=== PATIENT | female | born 1975 ===

== ENCOUNTER 2020-08-25 17:21 | Emergency (ER) | payer SELFPAY ==
[2020-08-25 17:38] VITALS: BP 152/89; PULSE 70; RESP 15; TEMP 36.6; O2SAT 98; BMI 26.6
--- NOTE | 2020-08-25 17:49 | ED_ITS ---
HPI - Back Pain/Injury General: Chief Complaint: Back Pain/Injury Stated Complaint: Low back pain after bending over Time Seen by Provider: 08/25/20 17:48 History of Present Illness: HPI Narrative: Patient is a 45-year-old female who comes to the ED with left lower back pain. Patient says couple hours ago, she was cleaning her kitchen and bent over and came back up pain on the left lower back region. She now has pain there occurred with movement. Denies any pain or numbness down lower extremities. Denies any bladder or bowel incontinence, pelvic anesthesia. Associated symptoms: Deny abdominal pain, chills, dysuria, fatigue, fever(s), hematuria, nausea or vomiting Review of Systems Const: Denies: fever(s), chills or fatigue Eyes: Denies: change in vision or eye discomfort ENMT: Denies: throat pain, odynophagia, nasal discharge or nasal congestion Card: Denies: chest pain, palpitations, edema, swelling of feet/ankles, dys pnea on exertion or orthopnea Resp: Denies: dyspnea, productive cough or non-productive cough GI: Denies: abdominal pain, nausea, vomiting, diarrhea, constipation or hematochezia : Denies: flank pain, dysuria or hematuria Musc: Reports: back pain; Denies: neck pain or extremity swelling Skin/Breast: Denies: rash or new lesions Neuro: Denies: headache(s), numbness in extremities or weakness in extremities Physical Exam Const: COMMON NORMALS: no acute distress, patient oriented x3, healthy appearing and alert GENERAL APPEARANCE: cooperative and comfortable HENMT: COMMON NORMALS: normocephalic HEAD & SCALP: normocephalic MOUTH: Normal oral and palatal mucosa present THROAT: posterior oropharynx normal and uvula midline Neck/C-Spine: COMMON NORMALS: supple GENERAL: Yes normal visual inspection Resp: COMMON NORMALS: normal respiratory effort, No retractions, No use of accessory muscles and clear to auscultation bilaterally AUSCULTATION: clear to auscultation bilaterally Cardio: COMMON NORMALS: regular rate, regular rhythm, S1 normal heart sound present, S2 normal heart sound present, No gallops present (Cardio), No clicks present (Cardio), No murmurs present (Cardio) and Peripheral pulses 2+ throughout RATE: regular rate RHYTHM: regular rhythm HEART SOUNDS: S1 normal heart sound present and S2 normal heart sound present PERIPHERAL PULSES: Peripheral pulses 2+ throughout GI: COMMON NORMALS: Normal to inspection, nondistended, normoactive bowel sounds present, Soft to palpation, non-tender and no masses PALPATION: Yes Soft to palpation : COMMON NORMALS: Yes no CVA tenderness BLADDER/KIDNEY EXAM: Yes no CVA tenderness Back/Pelvis: COMMON NORMALS: no CVA tenderness LUMBAR SPINE/LOWER BACK: Yes pain with ROM and Yes paraspinal muscle tenderness Lumbar paraspinal muscle tenderness: left left lumbar paraspinal muscle tenderness: L2, L3 and L4 Extremity: COMMON NORMALS: no pedal edema Neuro: COMMON NORMALS: patient oriented x3 and moves all extremities SENSORIUM/ORIENTATION: Yes alert Skin: GENERAL SKIN EXAM: dry skin Course Vital Signs: Vital signs: Vital Signs Temperature 97.8 F 08/25/20 17:38 Pulse Rate 70 08/25/20 18:45 Respiratory Rate 15 08/25/20 18:45 Blood Pressure 148/79 08/25/20 18:45 Pulse Oximetry 97 08/25/20 18:45 MDM - Back Pain/Injury MDM Narrative: Medical decision making narrative: Patient is a 45-year-old female who comes to the ED with lower back pain. Patient says she bent over for something while working in the kitchen and felt pain on left side of back. No cauda equina symptoms. Paraspinal muscle tenderness on the left side of the lumbar spine. Patient was given a dose of Norflex, Toradol and Solu-Medrol while here in the ED. She was sent home with a prescription for prednisone and ibuprofen and Robaxin. Follow-up with PCP in 7 to 10 days. Return ED precautions given. Patient understood agree with plan. Discharge Plan Discharge Patient Disposition: Home Clinical Impression: Strain of lumbar region Qualifiers: Encounter type: initial encounter Qualified Code(s): S39.012A - Strain of muscle, fascia and tendon of lower back, initial encounter Condition: Stable Prescriptions: New prednisone 50 mg tablet 50 mg PO ONCE 5 Days Qty: 5 RF: 0 ibuprofen 800 mg tablet 800 mg PO Q8H PRN (Reason: pain) Qty: 30 RF: 0 methocarbamol 750 mg tablet 750 mg PO Q8H Qty: 30 RF: 0 Discharge Orders: Discharge Order (Routine); Ordered 08/25/20 Ordered By: Louie Gutiérrez Referrals: Sary Loredo FNP [Primary Care Provider] - Discharge Diet: Regular Discharge Activity: Increase activity as tolerated Patient Instructions: Low Back Strain (ED) Activity Restrictions/Additional Instructions: Follow-up with medical provider as directed in 7 to 10 days. Rest, apply ice and/or heat on lower back to help with symptoms. Stretch daily and massage sore muscles daily. Take medications as prescribed. Remember that the methocarbamol is a muscle relaxer and can cause some drowsiness, so take at night before bed. If you use it during the day use with caution due to drowsiness side effects. Return to the ER or your medical provider if condition worsens. Please read and understand discharge instructions. If any questions, please ask. Discharge Date/Time: 08/25/20 18:45 Coding Level of Care Code ED Consumer Services Advisor for Sandy Fwd Exam Comprehensive
[2020-08-25] MEDS: orphenadrine 30 mg/mL Inj 2 mL 60 MG IM (18:30)
[2020-08-25] MEDS: ketorolac 60 mg/2 mL INJ IM (18:30)
[2020-08-25 18:45] VITALS: BP 148/79; PULSE 70; RESP 15; O2SAT 97
== END 2020-08-25 18:45 | disposition home or self-care (01) ==
PROVIDERS: Emergency Provider Physician Assistant; PCP Nurse Practitioner
DX: S39.012A Strain of muscle, fascia and tendon of lower back, initial encounter (principal); X50.1XXA Overexertion from prolonged static or awkward postures, initial encounter
CPT/HCPCS: 12345; 96372; 99281; 99283; J1885; J2360; J2930

== ENCOUNTER 2023-06-15 23:35 | Emergency (ER) | payer SELFPAY ==
[2023-06-15 23:49] VITALS: BP 133/77; PULSE 64; RESP 14; TEMP 36.7; O2SAT 98
[2023-06-16 00:01] VITALS: BP 136/88; PULSE 69; RESP 16; O2SAT 98
--- NOTE | 2023-06-16 00:03 | ED_ITS ---
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 She denies any trismus. Associated symptoms: Denies fever(s) Review of Systems Const: Denies: fever(s) ENMT: Reports: dental pain; Denies: throat pain Card: Denies: chest pain Resp: Denies: dyspnea GI: Denies: abdominal pain, nausea, vomiting or diarrhea Musc: Denies: neck pain or back pain Skin/Breast: Denies: rash Neuro: Denies: headache(s) Physical Exam Const: COMMON NORMALS: no acute distress and patient oriented x3 HENMT: COMMON NORMALS: normocephalic and atraumatic HEAD & SCALP: normocephalic and atraumatic OTHER: Tenderness to left upper incisors with some slight swelling and erythema no abscess Eye: COMMON NORMALS: conjunctivae normal CONJUNCTIVA: Yes conjunctivae normal Neck/C-Spine: COMMON NORMALS: supple Chest: COMMONS NORMALS: normal inspection of the chest Resp: COMMON NORMALS: normal respiratory effort Extremity: COMMON NORMALS: normal to inspection Neuro: COMMON NORMALS: patient oriented x3 Psych: COMMON NORMALS: mental status grossly normal Course Vital Signs: Vital signs: Vital Signs Temperature 98.1 F 06/15/23 23:49 Pulse Rate 64 06/15/23 23:49 Respiratory Rate 14 06/15/23 23:49 Blood Pressure 133/77 06/15/23 23:49 Pulse Oximetry 98 06/15/23 23:49 Oxygen Delivery Me thod Room Air 06/15/23 23:49 MDM - Dental/Oral Medical Decision Making Patient presents with dental pain along with likely dental infection no abscess no trismus we will place her on Keflex along with Naprosyn she is to follow-up with a dentist return if worsening Discharge Plan Discharge Patient Disposition: Home Clinical Impression: Toothache Condition: Stable Prescriptions: New cephalexin 500 mg capsule 500 mg PO TID 7 Days Qty: 21 0RF Naprosyn 500 mg tablet 500 mg PO BID PRN (Reason: pain) Qty: 20 0RF No Action ibuprofen 800 mg tablet 800 mg PO Q8H PRN (Reason: pain) Qty: 30 0RF methocarbamol 750 mg tablet 750 mg PO Q8H Qty: 30 0RF Discharge Orders: Discharge ED (Routine); Ordered 06/16/23 Ordered By: Karthik Mace Referrals: Dionte Stark MD [Primary Care Provider] - Discharge Diet: Advance as tolerated Discharge Activity: Resume usual activity Patient Instructions: Toothache (ED) Coding Level of Care Code ED Policy Loan Calculator for Sandy Barajas
[2023-06-16 00:11] VITALS: BP 136/88; PULSE 76; RESP 17; O2SAT 99
== END 2023-06-16 00:12 | disposition home or self-care (01) ==
PROVIDERS: Emergency Provider Emergency Medicine; PCP Family Medicine
DX: K08.89 Other specified disorders of teeth and supporting structures (principal)
CPT/HCPCS: 99283